=== PATIENT | male | born 1950 | race Caucasian/White ===

== ENCOUNTER 2020-12-27 08:47 | Emergency (ER) | payer MEDICARE, OTHER ==
[~2020-12-27] VITALS: Ht 160 cm; Wt 67.1 kg
[2020-12-27 08:58] VITALS: BP 165/98
--- NOTE | 2020-12-27 09:07 | NUR ---
PT REFUSED XRAY.
[2020-12-27] MEDS ORDERED: IBUPROFEN 600 MG TABLET ONE (09:15)
[2020-12-27] MEDS ORDERED: IBUPROFEN 600 MG TABLET PO ONE (09:30)
[2020-12-27] MEDS ORDERED: MORPHINE SULFATE INJ 4 MG/ML DISP.SYRIN ONE (09:32)
[2020-12-27] MEDS ORDERED: TRAM50TA2 PO (09:38)
[2020-12-27] MEDS ORDERED: MORPHINE SULFATE INJ 4 MG/ML DISP.SYRIN IM ONE (10:00)
--- NOTE | 2020-12-27 10:15 | NUR ---
WOUND CLEANING AND DRESSING DONE BY PHOTO INTERN.
--- NOTE | 2020-12-27 10:29 | NUR ---
Patient discharged to home in stable condition. Written and verbal after care instructions given. Patient verbalizes understanding of instruction.
== END 2020-12-27 10:29 | disposition home or self-care (01) ==
LOC: ER 09:00
DX: S91.202A Unspecified open wound of left great toe with damage to nail, initial encounter (principal); Z88.0 Allergy status to penicillin; W22.8XXA Striking against or struck by other objects, initial encounter; Y93.89 Activity, other specified; Y92.89 Other specified places as the place of occurrence of the external cause; Y99.8 Other external cause status
CPT/HCPCS: 96372; 99283; A6403; J2270